=== PATIENT | female | born 1985 | race American Indian/Alaskan Native ===

== ENCOUNTER 2019-04-24 07:30 | Emergency (ER) | payer OTHER ==
[2019-04-24] MEDS ORDERED: MORPHINE IV ONE (08:36)
[2019-04-24] MEDS ORDERED: ZOFRAN IV ONE (08:36)
[2019-04-24] MEDS ORDERED: PERCOCET 5/325 PO ONE (08:59)
--- NOTE | 2019-04-24 09:05 | Emergency Department Report ---
- General Chief complaint: Skin/Abscess/Foreign Body Stated complaint: CYST ON REAR END/HARD TO STAND Time Seen by Provider: 04/24/19 08:34 Source: patient Mode of arrival: Ambulatory Limitations: No Limitations - History of Present Illness Initial comments: 33 year old -[place] female presents to the emergency room complaining of pimple on her tox 3 days. Patient denies any fever or chills. Patient reports that the pain is excruciating to the point where she is not able to get comfortable. Patient's last menstrual period was 03/30/2019. Patient reports she has a history of boils. She denies any current medications no known drug allergies no past medical history surgical histories of valve replacement. MD complaint: abscess/boil Onset/Timin -: days(s) Location: buttocks Severity scale (0 -10): 8 Quality: stabbing, aching, sharp Consistency: constant Improves with: none Worsens with: palpation, movement Associated symptoms: denies other symptoms Treatments Prior to Arrival: none - Related Data Previous Rx's Medication Instructions Recorded Last Taken Type DOXYCYCLINE Hyclate [Vibramycin 100 mg PO Q12HR #20 capsule 04/24/19 Unknown Rx CAP] Ibuprofen [Motrin 800 MG tab] 800 mg PO Q8HR PRN #30 tablet 04/24/19 Unknown Rx Allergies Allergy/AdvReac Type Severity Reaction Status Date / Time No Known Allergies Allergy Unverified 06/06/18 08:52 Abscess Boil [facility] Chief Complaint: Skin/Abscess/Foreign Body Stated Complaint: CYST ON REAR END/HARD TO STAND Time Seen by Provider: 04/24/19 08:34 Home Medications: Previous Rx's Medication Instructions Recorded Last Taken Type DOXYCYCLINE Hyclate [Vibramycin 100 mg PO Q12HR #20 capsule 04/24/19 Unknown Rx CAP] Ibuprofen [Motrin 800 MG tab] 800 mg PO Q8HR PRN #30 tablet 04/24/19 Unknown Rx Allergies/Adverse Reactions: Allergies Allergy/AdvReac Type Severity Reaction Status Date / Time No Known Allergies Allergy Unverified 06/06/18 08:52 ED Review of Systems ROS: Stated complaint: CYST ON REAR END/HARD TO STAND Other details as noted in HPI ED Past Medical Hx - Past Medical History Previous Medical History?: No - Surgical History Past Surgical History?: No - Social History Smoking Status: Never Smoker Substance Use Type: None - Medications Home Medications: Home Medications Medication Instructions Recorded Confirmed Last Taken Type DOXYCYCLINE Hyclate [Vibramycin 100 mg PO Q12HR #20 capsule 04/24/19 Unknown Rx CAP] Ibuprofen [Motrin 800 MG tab] 800 mg PO Q8HR PRN #30 tablet 04/24/19 Unknown Rx ED Physical Exam - General Limitations: No Limitations ED Course Vital Signs 04/24/19 07:36 Temperature 98.3 F Pulse Rate 91 H Respiratory 16 Rate Blood Pressure 122/60 [Left] O2 Sat by Pulse 96 Oximetry ED Medical Decision Making - Lab Data Result diagrams: 04/24/19 08:40 04/24/19 08:40 - Radiology Data Radiology results: report reviewed Patient: YANIV BUTT MR#: [id number] 46 : 1985 Acct:[id number] Age/Sex: 33 / F ADM Date: 04/24/19 Loc: ED Attending Dr: Ordering Physician: LYNN WASHBURN Date of Service: 04/24/19 Procedure(s): CT pelvis w con Accession Number(s): [id number] cc: LYNN WASHBURN CT of the pelvis with contrast INDICATION: Gluteal abscess COMPARISON: None FINDINGS: There is no significant intrapelvic abnormality. Just superior to the gluteal cleft there is a 4.4 x 3.3 cm area of soft tissue inflammation. There is no enhancing wall at this time. No gas is seen within the area. The underlying sacrum is intact. No other abnormality. IMPRESSION: Inflammatory process as described. I suspect this is a developing abscess. The process is confined to the subcutaneous tissues without intrapelvic extension. Automated exposure control was utilized to diminish radiation dose. Signer Name: Abhi Antonio MD Signed: 04/24/2019 11:42 AM Workstation Name: [id number] Transcribed By: JM Dictated By: Abhi Antonio MD Electronically Authenticated By: Abhi Antonio MD Signed Date/Time: 04/24/19 1142 DD/ 1138 TD/TT: - Medical Decision Making 33 year old -[place] female presents to the emergency room complaining of pimple on her tox 3 days. Patient denies any fever or chills. Patient reports that the pain is excruciating to the point where she is not able to get comfortable. Patient's last menstrual period was 03/30/2019. Patient reports she has a history of boils. She denies any current medications no known drug allergies no past medical history surgical histories of valve replacement. CT reports that she was developing an abscess that has not penetrated through the subcutaneous. Patient will be placed on doxycycline 100 mg by mouth twice a day pain medication and referral to outpatient medicine. Critical care attestation.: If time is entered above; I have spent that time in minutes in the direct care of this critically ill patient, excluding procedure time. ED Disposition Clinical Impression: Cellulitis and abscess of buttock Disposition: - TO HOME OR SELFCARE Is pt being admited?: No Does the pt Need Aspirin: No Condition: Stable Instructions: Cellulitis (ED) Additional Instructions: Please completes her antibiotics as prescribed. Pain medication as needed. Follow up with [facility] for further evaluation if symptoms persist or gets worse. Prescriptions: Ibuprofen [Motrin 800 MG tab] 800 mg PO Q8HR PRN #30 tablet PRN Reason: Pain , Severe (7-10) DOXYCYCLINE Hyclate [Vibramycin CAP] 100 mg PO Q12HR #20 capsule Forms: Work/School Release Form(ED)
[2019-04-24 09:49] LABS: Basophils % (Auto) 0.3 % (0.0-1.8); Eosinophils # (Auto) 0.1 K/mm3 (0.0-0.4); Eosinophils % (Auto) 0.6 % (0.0-4.3); Hematocrit 38.9 % (30.3-42.9); Lymphocytes # (Auto) 2.1 K/mm3 (1.2-5.4); Lymphocytes % (Auto) 19.6 % (13.4-35.0); Mean Corpuscular HGB Conc 34 % (30-34); Mean Corpuscular Volume 89 fl (79-97); Monocytes # (Auto) 0.9 K/mm3 (0.0-0.8); Monocytes % (Auto) 8.2 % (0.0-7.3); Platelet Count 294 K/mm3 (140-440); Red Blood Count 4.39 M/mm3 (3.65-5.03); Red Cell Distribution Width 13.6 % (13.2-15.2)
[2019-04-24 09:58] LABS: BUN/Creatinine Ratio 10; Blood Urea Nitrogen 8 mg/dL (7-17); Calcium 9.3 mg/dL (8.4-10.2); Hemolysis Index 4
--- NOTE | 2019-04-24 11:47 | Cat Scan Report ---
CT of the pelvis with contrast INDICATION: Gluteal abscess COMPARISON: None FINDINGS: There is no significant intrapelvic abnormality. Just superior to the gluteal cleft there i s a 4.4 x 3.3 cm area of soft tissue inflammation. There is no enhancing wall at this time. No gas is seen within the area. The underlying sacrum is intact. No other abnormality. IMPRESSION: Inflammatory process as described. I suspect this is a developing abscess. The process is confined to the subcutaneous tissues without intrapelvic extension. Automated exposure control was utilized to diminish radiation dose. Signer Name: Abhi Antonio MD Signed: 04/24/2019 11:42 AM Workstation Name: [id number]
[2019-04-24 12:27] VITALS: BP 126/71
== END 2019-04-24 12:12 | disposition home or self-care (01) ==
LOC: ED 07:30
DX: L02.31 Cutaneous abscess of buttock (principal)
CPT/HCPCS: 36415; 72193; 80048; 85025; 99284; Q9967; J2270; J2405

== ENCOUNTER 2019-06-19 09:09 | Emergency (ER) | payer OTHER ==
[2019-06-19 09:15] VITALS: BP 129/69
--- NOTE | 2019-06-19 09:51 | Emergency Department Report ---
Chief Complaint: Upper Respiratory Infection Stated Complaint: FLU LIKE SYM Time Seen by Provider: 06/19/19 09:30 - HPI History of Present Illness: Gi is a healthy 33-year-old female with history of heart murmur who presents with nasal congestion cough fever for the past 4 days starting since Friday. mild headache. Multiple sick contacts. On exam clear breath sounds. No evidence of pharyngitis. She appears well. She appears nontoxic. She appears healthy. She appears comfortable. Medical screening exam performed and completed. She does not have a life or limb threatening condition which needs further treatment or evaluation. I recommended supportive care instructions. I recommended [id number] cold therapy. - Exam Vital Signs: Vital Signs 06/19/19 09:09 Temperature 98.5 F Pulse Rate 75 Respiratory 18 Rate Blood Pressure 129/69 [Right] O2 Sat by Pulse 97 Oximetry MSE screening note: Focused history and physical exam performed. Due to findings the following was ordered: ED Disposition for MSE Clinical Impression: Upper respiratory infection Disposition: Z-07 MED SCREENING EXAM-LEFT Is pt being admited?: No Does the pt Need Aspirin: No Condition: Stable Instructions: Upper Respiratory Infection (ED)
== END 2019-06-19 10:13 | disposition left against medical advice (07) ==
LOC: ED 09:09
DX: J06.9 Acute upper respiratory infection, unspecified (principal)
CPT/HCPCS: 99281